=== PATIENT | female | born 1960 | race Hispanic/Latino ===

== ENCOUNTER 2021-02-26 07:11 | Day surgery (SDC) | payer BC ==
--- NOTE | 2021-02-26 09:59 | Anesthesia Day of Surgery ---
Anesthesia Day of Surgery - Day of Surgery Patient Examined: Yes Patient H&P Reviewed: Yes Patient is NPO: Yes
[2021-02-26] MEDS ORDERED: MIDAZOLAM 2 MG/2 ML INJ IV NR (10:00)
[2021-02-26] MEDS ORDERED: LACTATED RINGERS 1,000 ML IV SCH (10:00)
[2021-02-26] MEDS ORDERED: ONDANSETRON 4 MG/2 ML INJ IV PRN (10:00)
[2021-02-26] MEDS ORDERED: HYDROmorphone 1 MG/1 ML INJ IV PRN ×2 (10:00)
--- NOTE | 2021-02-26 10:00 | Anesthesia Consultation ---
Anesthesia Consult and Med Hx Date of service: 02/26/21 - Airway Anesthetic Teeth Evaluation: Caps ROM Head & Neck: Adequate Mental/Hyoid Distance: Adequate Mallampati Class: Class III Intubation Access Assessment: Probably Good - Pre-Operative Health Status ASA Pre-Surgery Classification: ASA2 Proposed Anesthetic Plan: General - Pulmonary Hx Smoking: No Hx Respiratory Symptoms: No Hx Sleep Apnea: No - Cardiovascular System Hx Hypertension: Yes - Gastrointestinal Hx Ulcer: Yes Hx Gastroesophageal Reflux Disease: Yes (Dietary) - Endocrine Hx Renal Disease: Yes (Stones) Hx Non-Insulin Dependent Diabetes: No (Metformin for weight loss) - Other Systems Hx Obesity: Yes
[2021-02-26] MEDS ORDERED: LACTATED RINGERS 1,000 ML ONE (10:03)
[2021-02-26] MEDS ORDERED: ceFAZolin/STERILE WATER 2 GM/20 ML SYRINGE IV NR (10:19)
[2021-02-26] MEDS ORDERED: HYDROmorphone 1 MG/1 ML INJ ONE (11:02)
[2021-02-26] MEDS ORDERED: propofoL 200 MG/20 ML VIAL IV ONE (11:02)
[2021-02-26] MEDS ORDERED: LIDOCAINE MPF (2%) 20 MG/1 ML VIAL 5 ML ONE (11:03)
[2021-02-26] MEDS ORDERED: WATER FOR IRRIG STERILE 2000 ML IR ONE (12:15)
[2021-02-26] MEDS ORDERED: ONDANSETRON 4 MG/2 ML INJ ONE (12:31)
--- NOTE | 2021-02-26 12:49 | Short Stay Summary ---
Short Stay Documentation Date of service: 02/26/21 - History H&P: obtained from office - Allergies and Medications Current Medications: Allergies No Known Allergies Allergy (Unverified 02/26/21 10:00) Home Medications Medication Instructions Recorded Confirmed Last Taken Type AtorvaSTATin 80 mg PO DAILY 02/26/21 02/26/21 2 Weeks Ago History ~02/12/21 Bupropion Xl 150 mg PO DAILY 02/26/21 02/26/21 02/25/21 History Esomeprazole Magnesium [NexIUM] 40 mg PO QDAY 02/26/21 02/26/21 02/25/21 History Ezetimibe [Zetia] 10 mg PO DAILY 02/26/21 02/26/21 02/25/21 History Phenazopyridine [Pyridium] 100 mg PO TID 02/26/21 02/26/21 02/25/21 History lisinopriL [Lisinopril] 10 mg PO DAILY 02/26/21 02/26/21 02/25/21 History metFORMIN [Glucophage] 500 mg PO BID 02/26/21 02/26/21 02/25/21 History Active Medications Cefazolin Sodium (Cefazolin/Sterile Water 2 Gm/20 Ml Syringe) 2 gm IV PREOP NR Stop: 02/26/21 14:00 Hydromorphone HCl (Hydromorphone 1 Mg/1 Ml Inj) 0.25 mg IV Q10MIN PRN PRN Reason: Pain, Moderate (4-6) Stop: 02/26/21 23:00 Hydromorphone HCl (Hydromorphone 1 Mg/1 Ml Inj) 0.5 mg IV Q10MIN PRN PRN Reason: Pain , Severe (7-10) Stop: 02/26/21 23:00 Lactated Ringer's (Lactated Ringers) 1,000 mls @ 100 mls/hr IV DIRECT NNEKA Last Admin: 02/26/21 10:10 Dose: 100 mls/hr Documented by: Midazolam HCl (Midazolam 2 Mg/2 Ml Inj) 2 mg IV PREOP NR Stop: 02/26/21 23:59 Last Admin: 02/26/21 10:10 Dose: 2 mg Documented by: Ondansetron HCl (Ondansetron 4 Mg/2 Ml Inj) 4 mg IV ONCE PRN PRN Reason: Nausea And Vomiting Stop: 02/26/21 13:00 - Brief post op/procedure progress note Date of procedure: 02/26/21 Pre-op diagnosis: rt impacted ureteral stones, perc tube Post-op diagnosis: same Procedure: cysto, removal stent & perc tube, ureterosscopy, laser stone removal, stent placement with external string Anesthesia: MEGAN Surgeon: ANUJA MOTA Estimated blood loss: none Condition: stable - Hospital course Hospital course: norco,bactrim,stone,post op info - Disposition Condition at discharge: Stable Disposition: DC-01 TO HOME OR SELFCARE Short Stay Discharge Plan Follow up with: BRICE HERNANDEZ MD [Primary Care Provider] - 7 Days
--- NOTE | 2021-02-26 13:35 | Operative Report ---
DATE OF SURGERY: 02/26/2021 PREOPERATIVE DIAGNOSIS: Right distal impacted stone, status post nephroureteral tube. POSTOPERATIVE DIAGNOSIS: Right distal impacted stone, status post nephroureteral tube. PROCEDURES PERFORMED: Cystoscopy, removal of nephroureteral tube, right retrograde pyelogram, right ureteroscopy, holmium laser lithotripsy and removal of distal ureteral stones, Double-J stent exchange (6-[place] 24 cm with an external string). SURGEON: Desmond Martinez MD. ANESTHESIA: General. ESTIMATED BLOOD LOSS: Minimal. FLUIDS: Crystalloid. COMPLICATIONS: No complications. INDICATIONS: This patient is a 60-year-old female with long history of stone. She was actually seen at [facility] by one of my partners, attempted stent was unsuccessful. She ultimately received a right nephroureteral tube and presents now due to insurance reasons for evaluation. Risks, benefits, and complications were explained. DESCRIPTION OF PROCEDURE: The patient was taken to the operative suite, placed in a supine position. After adequate general anesthesia, placed in a dorsal lithotomy position, prepped and draped in a sterile fashion. Pancystourethroscopy was performed with a 22-[place] Storz cystoscope. Bladder, obvious stone with edema in the distal ureter. Landscaping Supervisor film revealed a nephroureteral tube. The stitch was cut at the skin on the right flank and the tube was cut. The nephrostomy tube was out and the stent was pulled out through the urethra. Retrograde pyelogram revealed a stone and some hydronephrosis. Ureteroscopy was performed. Stone could be appreciated with significant edema. Holmium laser lithotripsy, starting at 4 viveros going up to 8, was able to fragment the stone, pulled out the fragments. Rigid ureteroscopy to the renal pelvis. No other stones could be appreciated. A 6-[place] 24 cm Double-J stent with an external string was left indwelling. She was extubated and taken to recovery room. She will go home on Bactrim and [place]. TID: [id number] RECEIPT: [id number] [facility]/JACQUIE
--- NOTE | 2021-02-26 15:18 | Post Anesthesia Evaluation ---
- Post Anesthesia Evaluation Patient Participated: Yes Airway Patent: Yes Stable Respiratory Function: Yes Nausea/Vomiting: No Temp > 96.8F: Yes Pain Manageable: Yes Adequeate Hydration: Yes Anesthesia Complications: No Block Receding Appropriately: Not Applicable Patient on Ventilator: No
--- NOTE | 2021-02-26 15:58 | Fluoroscopy Report ---
FLUOROSCOPY RETROGRADE UROGRAPHY HISTORY: Right ureteral stone FINDINGS: Fluoroscopy was provided by radiology during retrograde urography by the urologist. Initial images demonstrate a percutaneous right nephrostomy tube in place. The percutaneous tube was removed . Right ureteroscopy was performed. A right ureteral stone was seen per the operative note. A laser w as used. A right ureteral stent was placed with good drainage of the right collecting system on the f inal image. Please refer to the operative notes as needed. IMPRESSION: Right ureteral stone removal. Right ureteral stent placement. Fluoroscopy time: 59 seconds Fluoroscopic images: 8 Signer Name: Gian Gutierrez Jr, MD Signed: 02/26/2021 3:54 PM Workstation Name: [id number]
[2021-02-26 16:30] VITALS: BP 136/68
== END 2021-02-26 07:12 | disposition home or self-care (01) ==
LOC: OR 07:11
PROVIDERS: ATTEND Urology
DX: N20.1 Calculus of ureter (principal); I10 Essential (primary) hypertension; K21.9 Gastro-esophageal reflux disease without esophagitis; E66.9 Obesity, unspecified; Z87.891 Personal history of nicotine dependence; Z71.3 Dietary counseling and surveillance; Z79.84 Long term (current) use of oral hypoglycemic drugs; Z79.899 Other long term (current) drug therapy; Z98.890 Other specified postprocedural states
CPT/HCPCS: 52356; 74420; 82962; A4217; C1758; C1769; C2617; J0690; J1170; J2250; J2405; J2704; J7120; Q9967

== ENCOUNTER 2021-03-14 06:53 | Day surgery (SDC) | payer BC ==
[~2021-03-14 06:53] MED LIST: IOHEXOL 300 MG/ML 50ML IV ONE; WATER FOR IRRIG STERILE 1,500 ML BOTTLE IR ONE; WATER FOR IRRIG STERILE 2000 ML IR ONE
[2021-03-14] MEDS ORDERED: ceFAZolin/STERILE WATER 2 GM/20 ML SYRINGE IV NR (08:00)
[2021-03-14] MEDS ORDERED: MIDAZOLAM 2 MG/2 ML INJ IV NR (08:13)
--- NOTE | 2021-03-14 08:17 | Anesthesia Day of Surgery ---
Anesthesia Day of Surgery - Day of Surgery Patient Examined: Yes Patient H&P Reviewed: Yes Patient is NPO: Yes
[2021-03-14] MEDS ORDERED: HYDROmorphone 1 MG/1 ML INJ IV PRN ×2 (08:18)
[2021-03-14] MEDS ORDERED: ONDANSETRON 4 MG/2 ML INJ IV PRN (08:18)
--- NOTE | 2021-03-14 08:18 | Anesthesia Consultation ---
Anesthesia Consult and Med Hx Date of service: 03/14/21 - Airway Anesthetic Teeth Evaluation: Caps ROM Head & Neck: Adequate Mental/Hyoid Distance: Adequate Mallampati Class: Class II Intubation Access Assessment: Probably Good - Pre-Operative Health Status ASA Pre-Surgery Classification: ASA2 Proposed Anesthetic Plan: General - Pulmonary Hx Smoking: No Hx Respiratory Symptoms: No Hx Sleep Apnea: No - Cardiovascular System Hx Hypertension: Yes - Central Nervous System Hx Psychiatric Problems: No - Gastrointestinal Hx Gastroesophageal Reflux Disease: Yes (Dietary) - Endocrine Hx Renal Disease: Yes (Stones) Hx Non-Insulin Dependent Diabetes: No (Metformin for weight loss) - Other Systems Hx Alcohol Use: No Hx Substance Use: No Hx Cancer: No Hx Obesity: Yes - Additional Comments Anesthesia Medical History Comments: Was here [id number]
[2021-03-14] MEDS ORDERED: MORPHINE 2 MG/1 ML INJ IV NR (08:19)
[2021-03-14] MEDS ORDERED: MORPHINE 2 MG/1 ML INJ ONE (08:22)
[2021-03-14] MEDS ORDERED: LACTATED RINGERS 1,000 ML IV SCH (08:30)
[2021-03-14] MEDS ORDERED: dexAMETHasone 20 MG/5 ML VIAL ONE (09:23)
[2021-03-14] MEDS ORDERED: LIDOCAINE PF 100 MG/5 ML (CARDIAC SYRINGE) IV ONE (09:23)
[2021-03-14] MEDS ORDERED: KETAMINE/STERILE WATER 50 MG/ML SYRINGE ONE (09:23)
[2021-03-14] MEDS ORDERED: ONDANSETRON 4 MG/2 ML INJ ONE (09:23)
[2021-03-14] MEDS ORDERED: propofoL 200 MG/20 ML VIAL IV ONE (09:23)
[2021-03-14] MEDS ORDERED: WATER FOR IRRIG STERILE 2000 ML IR ONE (09:57)
[2021-03-14] MEDS ORDERED: WATER FOR IRRIG STERILE 1,500 ML BOTTLE IR ONE (09:57)
[2021-03-14] MEDS ORDERED: IOHEXOL 300 MG/ML 50ML IV ONE (09:57)
--- NOTE | 2021-03-14 10:18 | Short Stay Summary ---
Short Stay Documentation Date of service: 03/14/21 - History H&P: obtained from office - Allergies and Medications Current Medications: Allergies No Known Allergies Allergy (Verified 03/13/21 14:04) Home Medications Medication Instructions Recorded Confirmed Last Taken Type HYDROcodone/APAP 5-325 [[place] 1 each PO Q6HR PRN 03/13/21 03/13/21 03/13/21 History 5/325] Sulfamethoxazole/Trimethoprim 1 each PO BID 03/13/21 03/13/21 03/13/21 History [Bactrim DS TAB] Active Medications Cefazolin Sodium (Cefazolin/Sterile Water 2 Gm/20 Ml Syringe) 2 gm IV PREOP NR Stop: 03/14/21 14:00 Hydromorphone HCl (Hydromorphone 1 Mg/1 Ml Inj) 0.25 mg IV Q10MIN PRN PRN Reason: Pain, Moderate (4-6) Stop: 03/14/21 23:00 Hydromorphone HCl (Hydromorphone 1 Mg/1 Ml Inj) 0.5 mg IV Q10MIN PRN PRN Reason: Pain , Severe (7-10) Stop: 03/14/21 23:00 Lactated Ringer's (Lactated Ringers) 1,000 mls @ 100 mls/hr IV DIRECT NNEKA Last Admin: 03/14/21 08:30 Dose: 100 mls/hr Documented by: Midazolam HCl (Midazolam 2 Mg/2 Ml Inj) 2 mg IV ONCE NR Stop: 03/14/21 13:00 Last Admin: 03/14/21 08:32 Dose: 2 mg Documented by: Morphine Sulfate (Morphine 2 Mg/1 Ml Inj) 2 mg IV ONCE NR Stop: 03/14/21 11:00 Last Admin: 03/14/21 08:35 Dose: 2 mg Documented by: Ondansetron HCl (Ondansetron 4 Mg/2 Ml Inj) 4 mg IV ONCE PRN PRN Reason: Nausea And Vomiting Stop: 03/14/21 11:00 - Brief post op/procedure progress note Date of procedure: 03/14/21 Pre-op diagnosis: rt ureteral stone Post-op diagnosis: same Procedure: cysto rt ureteroscopy basket stone stent in ternal string Anesthesia: GETA Surgeon: ANUJA MOTA Condition: stable - Hospital course Hospital course: bactrim,. norco, post op info on chart - Disposition Condition at discharge: Stable Disposition: 01 HOME / SELF CARE / HOMELESS Short Stay Discharge Plan Follow up with: BRICE HERNANDEZ MD [Primary Care Provider] - 7 Days
[2021-03-14 10:54] VITALS: BP 120/65
--- NOTE | 2021-03-14 10:56 | Operative Report ---
DATE OF SURGERY: 03/14/2021 PREOPERATIVE DIAGNOSIS: Right distal ureteral stone. POSTOPERATIVE DIAGNOSIS: Right distal ureteral stone, impacted. PROCEDURE PERFORMED: Cystoscopy, bilateral retrograde pyelograms, right ureteroscopy, basket stone extraction, double-J stent (6-[place] Citizen 24 cm with a short internal string). SURGEON: Desmond Martinez MD ANESTHESIA: General. ESTIMATED BLOOD LOSS: Minimal. FLUIDS: Crystalloid. COMPLICATIONS: No complications. INDICATIONS: This patient is a 61-year-old female with long history of stones. She had a previous right-sided stone extraction, developed right flank pain. Again, CT abdomen and pelvis, distal stone noted on CT at the level of the SI joint, 6 mm. Discussed options, she agreed to proceed with surgical intervention. DESCRIPTION OF PROCEDURE: The patient was taken to the operative suite, placed in a supine position. After adequate general anesthesia, placed in the dorsal lithotomy position, prepped and draped in a sterile fashion. Pancystourethroscopy was performed with a 22-[place] Citizen Storz cystoscope. No bladder pathology. Also of note, the patient has a clitoral ring. There was no cautery used and we left it on versus cutting it off. Bilateral retrograde pyelograms were obtained with an 8-[place] Citizen Dickens catheter and 8 mL of contrast. No filling defects or obstruction on the left. Right side in the area of the SI joint, distal was normal. There was hydronephrosis proximal, two 0.035 Glidewires were placed, rigid ureteroscopy. There was edema, obvious yellow stone could be appreciated in that edema, which is the area of her previous stone. 3-[place] Citizen Gabriella basket was used to extract the stone without difficulty. Ureteroscopy up to the renal pelvis. No other stones could be appreciated. Due to this area, having a fair amount of edema, a 6-[place] Citizen 24 cm stent with an internal string was left indwelling, would leave it there for at least two to three weeks. She was extubated and taken to recovery room. She will go home on [place] and Bactrim. TID: [id number] RECEIPT: [id number] [facility]/YUMIKO
--- NOTE | 2021-03-14 12:10 | Fluoroscopy Report ---
11 fluoroscopic images submitted Indication: Intraoperative localization Impression: 11 images of the abdomen were submitted for documentation purposes with radiology kylie lui. Bilateral retrograde pyelograms were performed with right-sided stone removal and stent place ment. Please refer to the operative note for complete details. Fluoroscopic time: 0.4 minutes Signer Name: Navid Cheung MD Signed: 03/14/2021 12:06 PM Workstation Name: [id number]
== END 2021-03-14 11:15 | disposition home or self-care (01) ==
LOC: OR 06:53
PROVIDERS: ATTEND Urology
DX: N20.1 Calculus of ureter (principal); I10 Essential (primary) hypertension; K21.9 Gastro-esophageal reflux disease without esophagitis; E66.9 Obesity, unspecified; Z71.3 Dietary counseling and surveillance; Z87.891 Personal history of nicotine dependence; Z90.710 Acquired absence of both cervix and uterus; Z98.890 Other specified postprocedural states; Z79.899 Other long term (current) drug therapy; Z68.31 Body mass index [BMI] 31.0-31.9, adult
CPT/HCPCS: 52332; 52352; 74420; 82962; A4217; C1769; C2617; J0690; J1100; J2001; J2250; J2270; J2405; J2704; J3490; J7120; Q9967